=== PATIENT | female | born 1945 | race Caucasian/White ===

== ENCOUNTER 2016-11-18 12:10 | Day surgery (SDC) | payer OTHER ==
[~2016-11-18 12:10] MED LIST: AMLO10 PO; DYAZ PO; ENOX40P SQ; KLOR20TA6 PO; LOPR50TA12 PO; NORC7.5T PO; ROSU40 PO; SERT50 PO; TRAM50 PO; VESI10TA4 PO; Z.0.COMMODE-3:1; Z.0.CPM; Z.0.WALKERFRONT; ZANT150T2 PO
[2016-11-18] MEDS ORDERED: VANCOMYCIN 1000 MG/NS 250 ML IV SCH ×2 (12:45)
[2016-11-18] MEDS ORDERED: CHLORHEXIDINE GLUCONATE 2 % 1 PACK (2 CLOTHS) TOP SCH (12:45)
[2016-11-18] MEDS ORDERED: POVIDONE IODINE 5% (ANTISEPSIS KIT) 4 APPLICATIONS EACH NARE SCH (12:45)
[2016-11-18] MEDS ORDERED: MIDAZOLAM HCL 2 MG/2 ML VIAL ONE ×2 (12:59→13:35)
[2016-11-18] MEDS ORDERED: VANCOMYCIN HCL 1000 MG VIAL ONE (12:59)
[2016-11-18] MEDS ORDERED: MUPIROCIN 2% OINT 1 APPLIC/GM SYR NASAL SCH (13:00)
[2016-11-18] MEDS ORDERED: NS 1000 ML IV SCH (13:00)
[2016-11-18] MEDS ORDERED: POTA-163 PO (13:18)
[2016-11-18] MEDS ORDERED: METO-309 PO (13:18)
[2016-11-18] MEDS ORDERED: ASPI81CH37 CHEW (13:18)
[2016-11-18] MEDS ORDERED: CELE200C PO (13:18)
[2016-11-18] MEDS ORDERED: PANT20 PO (13:18)
[2016-11-18] MEDS ORDERED: DYAZ37.5 PO (13:18)
[2016-11-18] MEDS ORDERED: AMLO10 PO (13:18)
[2016-11-18] MEDS ORDERED: SERT-132 PO (13:18)
[2016-11-18] MEDS ORDERED: ROSU40 PO (13:18)
[2016-11-18] MEDS ORDERED: VESI5TAB PO (13:18)
[2016-11-18] MEDS ORDERED: ZANT150T2 PO (13:18)
--- NOTE | 2016-11-18 14:50 | MA ---
cc: OMID VALLE MD DATE: 11/18/2016 PROCEDURE Loop recorder insertion. INDICATION Atrial fibrillation. POSTPROCEDURE DIAGNOSIS Successful loop recorder insertion. DESCRIPTION OF PROCEDURE The patient was brought to the DOC unit in the postabsorptive state. After informed consent was obtained a [employer] loop recorder was inserted subcutaneously to the left chest. The patient tolerated the procedure well without any apparent complications. Tachybrady pause and atrial fibrillation detection was enabled. The serial number was [id number]. MD RADHA Garcia/INNA /1:50 PM /2:48 PM
== END 2016-11-18 14:50 | disposition home or self-care (01) ==
LOC: HDOC 12:10 → HDIC 12:13 → HDOC 14:50
PROVIDERS: ATTEND Nuclear Medicine Nuclear Cardiology
DX: I48.2 Chronic atrial fibrillation (principal); I10 Essential (primary) hypertension
CPT/HCPCS: 33282; C1764; J2250; J3010; J3370; J7030

== ENCOUNTER 2018-09-10 05:32 | Observation (INO) ==
[2018-09-10] MEDS ORDERED: Metoprolol Tartrate 25 MG Tablet PO ONE (06:25)
[2018-09-10] MEDS ORDERED: Chlorhexidine Gluconate 2% 1 Pack (2 Cloths) TOPICAL ONE (06:25)
[2018-09-10] MEDS ORDERED: Heparin - SQ 10,000 UNITS/ML Vial SQ ONE (06:30)
[2018-09-10] MEDS ORDERED: Levofloxacin 500 mg Premix Inj 500 MG/100 ML PIGGYBACK IV.SIG ONE (06:30)
[2018-09-10] MEDS ORDERED: Famotidine PF Inj 20 MG/2 ML Vial ONE (06:56)
[2018-09-10] MEDS ORDERED: Sugammadex Inj 200 MG/2 ML Vial IV.PUSH ONE (06:56)
[2018-09-10] MEDS ORDERED: Artificial Tears Opth Oint 3.5 GM Tube ONE (06:57)
[2018-09-10] MEDS ORDERED: Sodium Chlor 0.9% Inj 500 ML IV.SIG SCH (07:00)
[2018-09-10] MEDS ORDERED: Normosol-R pH 7.4 Inj 1,000 ML IV.CONT ONE (07:29)
[2018-09-10] MEDS ORDERED: Lidocaine PF 1% Inj 5 ML Syringe OTHER ONE (07:29)
[2018-09-10] MEDS ORDERED: hydrALAZINE HCl Inj 20 MG/ML Vial IV.PUSH ONE (07:29)
[2018-09-10] MEDS ORDERED: Lidocaine 1%/Epinephrine 1:100,000 Inj 30 ML Vial ONE (07:37)
[2018-09-10] MEDS ORDERED: LORazepam 0.5 MG Tablet PO PRN (10:43)
[2018-09-10] MEDS ORDERED: *HYDROmorphone PF Inj 1 MG/ML Ampul PERIprocedural Use ONLY ONE ×2 (11:02→11:42)
[2018-09-10] MEDS ORDERED: fentaNYL Citrate Inj 100 MCG/2 ML Ampul ONE (11:03)
[2018-09-10] MEDS ORDERED: *Ondansetron Inj 4 MG/2 ML Vial PERIprocedural Use ONLY ONE (11:04)
[2018-09-10] MEDS: KCL 20 mEq/D5W/NaCl 0.45% Inj 1,000 ML IV.CONT SCH ×2 (11:30→20:33)
[2018-09-10] MEDS: Ketorolac Inj 30 MG/ML (IVP) Vial IV.PUSH SCH ×2 (11:50→18:53)
--- NOTE | 2018-09-10 15:11 | P.PNONC ---
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 no complaints pain controlled Objective Vital Signs/Intake & Output: Vital Signs 09/10/18 06:16 09/10/18 10:55 09/10/18 11:00 Temperature 98.5 F 98.4 F Pulse Rate 66 84 82 Respiratory Rate 18 16 16 Blood Pressure 120/60 121/55 L 115/57 L Pulse Oximetry 95 96 95 09/10/18 11:15 09/10/18 11:30 09/10/18 11:45 Temperature Pulse Rate 80 74 76 Respiratory Rate 16 16 16 Blood Pressure 120/60 145/58 H 127/59 L Pulse Oximetry 95 96 95 09/10/18 12:00 09/10/18 12:30 09/10/18 13:13 Temperature 97.9 F Pulse Rate 76 78 80 Respiratory Rate 16 16 14 Blood Pressure 123/58 L 131/60 124/68 Pulse Oximetry 95 96 95 09/10/18 14:43 Temperature Pulse Rate Respiratory Rate Blood Pressure Pulse Oximetry 95 Intake & Output 09/09/18 09/10/18 09/10/18 18:59 06:59 18:59 Intake Total 1500 / 1500 Output Total 75 / 75 Balance 1425 / 1425 Weight 104.6 kg Intake: Anesthesia Amount 1500 / 1500 Output: Estimated Blood Loss 75 / 75 Other: Weight On Admission 104.6 kg Laboratory Results: Laboratory Results - last 24 hr 09/10/18 06:10 Blood Type A Negative Antibody Screen Positive H MTS Gel Crossmatch See Detail Bld Prod Order Comment Medications: Active Medications Generic Name Dose Route Start Last Admin Trade Name Freq PRN Reason Stop Dose Admin Lactated Ringer's 1,000 mls @ 30 mls/hr 09/10/18 06:30 09/10/18 06:41 Lr 1000 Ml Inj IV.SIG 09/11/18 06:29 30 mls/hr .Q24H DARIAN Administration Sodium Chloride 500 mls @ 30 mls/hr 09/10/18 07:00 09/10/18 06:44 Ns Inj IV.SIG Not Given .Q10H DARIAN Potassium Chloride/Dextrose/Sod Cl 1,000 mls @ 100 mls/hr 09/10/18 10:45 10/16 11:30 D5w/1/2ns + Kcl 20 Meq Inj IV.CONT 100 mls/hr .Q10H DARIAN Administration Ketorolac Tromethamine 15 mg 09/10/18 12:00 09/10/18 11:50 Toradol Inj IV.PUSH 09/11/18 06:01 Not Given Q6HR DARIAN Oxycodone/Acetaminophen 1 tab 09/10/18 10:43 09/10/18 13:23 Percocet 5/325 Mg PO 1 tab Q4H PRN Administration PAIN SCALE 1 TO 5 Objective Remarks: GENERAL: Well-nourished, well-developed patient. SKIN: Warm and dry. HEAD: Normocephalic. EYES: No scleral icterus. No injection or drainage. CARDIOVASCULAR: Regular rate and rhythm without murmurs. RESPIRATORY: Breath sounds equal bilaterally. No accessory muscle use. GASTROINTESTINAL: Abdomen soft, non-tender, nondistended. SS are c/d/i EXTREMITIES: teds and scds MUSCULOSKELETAL: Adequate muscle tone. NEUROLOGICAL: No obvious focal deficit. Awake, alert, and oriented x3. PSYCHIATRIC: Appropriate mood and affect; insight and judgment normal. Assessment/Plan (1) Pelvic mass in female Code(s): R19.00 - Intra-abdominal and pelvic swelling, mass and lump, unspecified site Status: Acute - Plan s/p RA resection of pelvic mass with BSO and lysis of adhesions post op orders in chart Ok to give Toradol as scheduled, Percocet PRN pain IV hydration OOB to chair discontinue Cannon in AM ADAT anticipate discharge in the next 24 hours
[2018-09-10] MEDS: Metoprolol Tartrate 50 MG Tablet PO SCH (20:33)
[2018-09-10] MEDS ORDERED: Sertraline 50 MG Tablet PO SCH (21:00)
--- NOTE | 2018-09-10 21:23 | MP ---
cc: Lu Rosado MD,Marcelino Dorsey,Vianca Lilly MD DATE OF OPERATION: 09/10/2018 PREOPERATIVE DIAGNOSES: 1. Complex bilateral adnexal masses. 2. Status post prior hysterectomy. POSTOPERATIVE DIAGNOSES: 1. Complex bilateral adnexal masses. 2. Status post prior hysterectomy. 3. Pelvic adhesions. PROCEDURE PERFORMED: Robotic-assisted laparoscopic bilateral salpingo-oophorectomy (resection of bilateral adnexal masses), left ureterolysis, lysis of pelvic adhesions. 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 ANESTHESIA: General endotracheal anesthesia. ESTIMATED BLOOD LOSS: 75 mL. IV FLUIDS: 1500 mL. URINE OUTPUT: 300 mL. HISTORY: This is a 73-year-old female found on exam and imaging to have complex bilateral adnexal masses. She is status post prior hysterectomy for benign indications. She was counseled regarding these findings. She was in favor of definitive surgical evaluation and management. She was seen again in the preoperative holding area where the findings risks and benefits were again reviewed. Plan of care discussed. Questions were asked and answered. She expressed good understanding and would like to move forward with surgery. FINDINGS: The uterus and cervix are surgically absent. Right adnexa estimated to be enlarged, approximately 5 cm, complex in nature. The ovary is prominent and enlarged, solid with adjacent complex cystic changes. Some adhesions to the right pelvic sidewall and the posterior cul-de-sac. In the left pelvis. There was a solid component adjacent to and replacing the ovary and a complex component that is fixed against the left pelvic sidewall and then the left posterior cul-de-sac. There was no obvious peritoneal implants. There was no obvious adenopathy. The ovaries once removed were suggestive of benign adenofibroma. No overt evidence of malignancy. STATEMENT OF COMPLEXITY/MODIFIER: The complexity of this case was increased due to her body habitus with a weight of 108.6 and a body mass index greater than 40, as well as fairly extensive pelvic adhesions. Modifier should be applied accordingly. DESCRIPTION OF PROCEDURE: She was taken to the operating room and placed in dorsal lithotomy position, after general endotracheal anesthesia was administered. A timeout was undertaken. She was identified by site recognition and hospital ID bracelet and the proposed procedure was reviewed and confirmed. She was carefully positioned in padded Jet stirrups. Her arms were padded and secured to the sides. She was further secured to the operating table with egg-crate padding and tape in a cross-chest, over the shoulder fashion. All sites noted to be properly aligned with no malalignment or pressure points. She was prepped and draped in sterile fashion. Cannon catheter placed in the bladder. Orogastric tube was in the stomach. With manual elevation of the abdominal wall, 5 mm cannula placed in the left upper quadrant. Carbon dioxide gas was insufflated under laparoscopic visualization, an 8 mm cannula was placed in the right upper quadrant and the left lateral quadrant and a 12 mm cannula placed in the midline above the umbilicus. The original 5 mm cannula exchanged for an 8 mm cannula. She was placed in Trendelenburg position. The anatomy was surveyed with findings as described above. Peritoneal washings were obtained for cytology. She was placed in Trendelenburg position and the small bowel was folded back on its mesentery group and 3 Ray-Rhonda sponges were placed around the root of the small bowel mesenteric. The robotic system was brought into the operative field and attached in the usual fashion. Monopolar scissors, fenestrated bipolar forceps and ProGrasp manipulators were placed in arms #1, 2, and 3 respectively, and I took my place at the surgeon's console. The residual right round ligament was isolated, cauterized, and transected. The retroperitoneum was dissected and the anterior and posterior leafs of the broad ligament. Dissection was carried down until the right ureter was identified. The right infundibulopelvic ligament was isolated and the intervening peritoneum was opened. The infundibulopelvic ligament was isolated to the level of the pelvic brim where it was cauterized and transected. Dissection was carried out distally to free the adhesions from the adnexa from against the right pelvic sidewall and from the posterior cul-de-sac. The adnexa was elevated. With dissection, it was noted that the ureter was able to be retracted and dissected away from these adhesions as the ovary was further dissected until it was attached only by the residual utero-ovarian ligament. The utero-ovarian ligament was isolated, cauterized, and transected, thereby removing the right tube and ovary, which were placed in the right pericolic gutter for later retrieval. Attention was directed towards the left side without residual left round ligament was isolated, cauterized, and transected. The anterior and posterior leaves of the broad ligament were opened. Dissection was carried out retroperitoneal. The ureter was deviated a bit somewhat toward the gonadal vessels and so the dissection was carried above the level of the pelvic brim. Adhesions were taken down to help mobilize the adnexal mass from its attachments to the sidewall and the cul-de-sac. The ureter was dissected free from the adhesions and the mass was sharp dissection along its course in the pelvis. Adhesions were taken down until the adnexal mass could be mobilized somewhat and the ureter was able to be dropped from its attachments to the posterior lateral aspect of the mass and the ureter was free along its course in the pelvis. The gonadal vessels were then sealed using the vessel sealer device at several levels and then transected. The adnexal mass was then elevated by elevating the remnant of the gonadal vessels attached to the mass and sharp dissection and cautery was used to continue dissecting in freeing the adhesions to free this mass from the sidewall and cul-de-sac. The cystic component was left intact. There was no spill of content. The dissection continued until the left uteroovarian ligament was isolated, which was then sealed using vessel sealer and then transected, thereby removing the left tube and ovary, which was placed in the right pericolic gutter for later retrieval. There was some concern about satisfactory hemostasis to the left gonadal vessels, so the retroperitoneal dissection was carried further above the pelvic brim to isolate the infundibulopelvic ligament further above the pelvic brim was isolated and the base of which was secured further with bipolar cautery rendering the site completely hemostatic. The pelvis was thoroughly irrigated. Small bleeders rendered hemostatic with bipolar cautery. Good peristalsis of ureters. No remaining abnormality detected and it was felt that all reasonable surgical objectives had been completed, pending pathology. Surgicel hemostatic agent was placed in the left pericolic gutter and the left pelvic sidewall dissection around the base of the gonadal vessels to assist in continued hemostasis. The robotic instruments were removed. The robotic system was disengaged from the operative field and reentered the bedside under sterile condition. The 12 mm fascial defect was extended with sharp dissection approximately an additional centimeter. The skin incision was extended perhaps a 5 mm and a 15 mm cannula with a 15 cm EndoCatch bag was introduced. Both adnexa with the masses were placed in the EndoCatch bag and brought up to the abdominal wall. The fluid component of the mass that were drained. Some was clear fluid, somewhat thick yellow fluid and with countertraction and grasping the solid component of the masses that were able to be delivered contained within the mass with no intraperitoneal spill, sent for frozen section analysis. Each of the 3 Ray-Rhonda sponges that were placed in the peritoneal cavity were now removed. Each were removed separately and inspected and noted to be removed in their entirety. There were no remaining foreign objects in the peritoneal cavity other than the intentionally placed hemostatic agent. Summary counts were correct. All sites were hemostatic. The midline fascial defect was closed with interrupted 0 Vicryl suture using a needle and fascial closure apparatus. They were tied securely which were entered the fascia completely airtight and hemostatic. The remaining cannulas were withdrawn and Carbon dioxide gas was removed, and 3-0 Vicryl subcutaneous, 3-0 Vicryl subcuticular, and Steri-Strips were used to close the skin incisions. Pelvic exam confirmed there were no remaining foreign objects in the vagina. Final counts were correct. She was returned to dorsal supine position and was pending reversal of anesthesia when I left the operating room to precede her to the postanesthesia care unit after confirming that the pathology was benign. MD ONEAL Viveros/camille , 07:22 PM , 07:38 PM DEIDRE
[2018-09-11] MEDS: Ketorolac Inj 30 MG/ML (IVP) Vial IV.PUSH SCH ×2 (00:33→05:14)
[2018-09-11 05:14] VITALS: RESP 18
[2018-09-11 07:00] LABS: Baso % (Auto) 0.3 % (0.0-2.0); Eos # (Auto) 0.1 th/mm3 (0.0-0.4); Hematocrit 32.3 % (35.0-46.0); Hemoglobin 11.1 gm/dL (11.6-15.3); Lymph # (Auto) 1.6 th/mm3 (1.0-4.8); Lymph % (Auto) 18.4 % (9.0-44.0); Mean Corpuscular HGB Conc 34.4 % (32.0-36.0); Mean Corpuscular Hemoglobin 30.9 pg (27.0-34.0); Mono # (Auto) 0.8 th/mm3 (0.0-0.9); Mono % (Auto) 9.3 % (0.0-8.0); Neut # (Auto) 6.2 th/mm3 (1.8-7.7); Platelet Count 230 th/mm3 (150-450); Red Blood Count 3.58 mil/mm3 (4.00-5.30); Red Cell Distribution Width 14.1 % (11.6-17.2); White Blood Count 8.8 th/mm3 (4.0-11.0)
[2018-09-11 07:26] LABS: Carbon Dioxide 26.8 meq/L (21.0-32.0); Potassium 3.7 meq/L (3.5-5.1)
--- NOTE | 2018-09-11 08:00 | MD ---
cc: Lu Rosado MD,Vianca Franco,Marcelino Castillo MD DATE OF DISCHARGE: 09/11/2018 PROCEDURE: 09/10/2018, robotic-assisted laparoscopic bilateral salpingo-oophorectomy (for resection of bilateral adnexal masses), lysis of pelvic adhesions, left ureterolysis. HOSPITAL COURSE: She did well in the early postop period. She was hemodynamically stable, tolerating oral intake. Cannon catheter removed pending voiding. Ins and outs 4260/725. Labs this morning show an H and H of 11.1 and 32.3. Electrolytes: Potassium 3.7, BUN and creatinine elevated consistent with baseline at 20 and 1.45. PHYSICAL EXAMINATION: VITALS: She is afebrile, pulse ranging from 59-66, respirations 16-18, blood pressure 102-123/52-60. GENERAL: She is alert and oriented x 3. LUNGS: Clear. Mild rales at the bases. CARDIOVASCULAR: Regular rate and rhythm. ABDOMEN: Soft. Incision is clean and dry. GYNECOLOGIC: No bleeding. EXTREMITIES: Nontender. ASSESSMENT: Postoperative day number 1, doing well in the early postop period. Findings at the time of surgery, preliminary pathology, and steps taken were reviewed. Activities and restrictions again discussed. Questions were asked and answered. She expressed good understanding. PLAN: I anticipate she will meet criteria for discharge to home today. She is to resume her prior medications. She has been instructed to wait until tomorrow to restart her blood thinners. She has an indwelling morphine pump for chronic back pain. I think she can safely take Percocet in addition to that, if needed; but she is instructed to try to rely on her morphine pump and supplement that with [id number] medicine as she is allowed. She is to call our office to schedule a followup in 2 weeks and to contact our office should she have any questions or problems between now and the time of scheduled followup. MD ONEAL Viveros/kristian , 07:37 AM , 07:43 AM
[2018-09-11 08:37] VITALS: BP 143/73; PULSE 69; TEMP 97.6; O2SAT 96
[2018-09-11] MEDS: Metoprolol Tartrate 50 MG Tablet PO SCH (08:41)
[2018-09-11] MEDS ORDERED: Fenofibrate 48 MG Tablet PO SCH (09:00)
[2018-09-11] MEDS ORDERED: Tolterodine Tartrate LA 2 MG Capsule PO SCH (09:00)
[2018-09-11] MEDS ORDERED: Heparin - SQ 10,000 UNITS/ML Vial SQ SCH (10:00)
== END 2018-09-11 09:56 | disposition home or self-care (01) ==
LOC: HSDC 05:32 → HSDI 05:32 → HCIN 12:58
PROVIDERS: ADMIT Obstetrics & Gynecology Gynecologic Oncology; ATTEND Obstetrics & Gynecology Gynecologic Oncology